=== PATIENT | male | born 2000 | race Hispanic/Latino ===

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

== ENCOUNTER 2023-06-12 12:45 | Emergency (ER) | payer SELFPAY ==
[~2023-06-12] VITALS: Ht 165.1 cm; Wt 54.4 kg
[~2023-06-12 12:45] MED LIST: ACETAMINOPHEN500 MG PO; IBUPROFEN200 MG PO; PREDNISONE50 MG PO; PROVENTIL HFA6.7 GM INH
[2023-06-12 12:52] VITALS: O2SAT 100
[2023-06-12] MEDS ORDERED: ACETAMINOPHEN 325 MG TAB PO ONE (13:00)
[2023-06-12] MEDS ORDERED: ACETAMINOPHEN 325 MG TAB ONE (13:11)
[2023-06-12] MEDS ORDERED: CORICIDIN HBP1 EACH PO (13:13)
[2023-06-12] MEDS ORDERED: PROVENTIL HFA6.7 GM INH (13:14)
[2023-06-12] MEDS ORDERED: ALBUTEROL1.25 MG/3 NEB (13:14)
== END 2023-06-12 13:24 | disposition home or self-care (01) ==
LOC: FSED 12:48
DX: R50.9 Fever, unspecified (principal); B34.9 Viral infection, unspecified; J45.901 Unspecified asthma with (acute) exacerbation; R05.9 Cough, unspecified; F17.210 Nicotine dependence, cigarettes, uncomplicated
CPT/HCPCS: 99283